=== PATIENT | female | born 1960 | race Caucasian/White ===

== ENCOUNTER 2020-06-28 18:08 | Emergency (ER) | payer BC ==
[2020-06-28] MEDS ORDERED: methylPREDNISolone Sodium Succinate 125 MG/2 ML SDV IM ONE (18:52)
--- NOTE | 2020-06-28 18:52 | EDM.PDOC ---
ED HPI GENERAL MEDICAL PROBLEM - General Chief Complaint: Bite:Animal, Insect Stated Complaint: MULTIPLE BEE STINGS Time Seen by Provider: 06/28/20 18:30 Source of Information: Reports: Patient History Limitations: Reports: No Limitations - History of Present Illness INITIAL COMMENTS - FREE TEXT/NARRATIVE: Rosalind is a 59-year-old female presenting to the ED with concerns of swelling on her upper chest, neck, and face after being stung yesterday by 6 bees. The patient denies any shortness of breath or difficulty swallowing but is concerned because the swelling continues to worsen. The patient was setting up a new hive when the stings occurred. She had one sting to the left occiput, 2 stings on the anterior neck, 1 to the upper lip, 1 to the left cheek, and 1 to the chin. Neck Pain Score (Numeric/FACES): 3 - Related Data Allergies Allergy/AdvReac Type Severity Reaction Status Date / Time codeine AdvReac Nausea Verified 06/28/20 18:28 Home Meds: Home Meds Ergocalciferol (Vitamin D2) [Vitamin D2] 1 tab PO WEEKLY 06/28/20 [History] Fluticasone Propionate [Flonase] 2 spray NASBOTH DAILY 06/28/20 [History] Levothyroxine [Synthroid] 100 mcg PO DAILY 06/28/20 [History] Losartan/Hydrochlorothiazide [Losartan-HCTZ 50-12.5 MG] 1 tab PO DAILY 06/28/20 [History] ED ROS GENERAL - Review of Systems Review Of Systems: See Below Constitutional: Reports: No Symptoms HEENT: Reports: Other (Swelling of the upper lip, left cheek, and left occiput) Respiratory: Reports: No Symptoms Cardiovascular: Reports: No Symptoms Endocrine: Reports: No Symptoms GI/Abdominal: Reports: No Symptoms : Reports: No Symptoms Musculoskeletal: Reports: No Symptoms Skin: Reports: No Symptoms Neurological: Reports: No Symptoms Psychiatric: Reports: No Symptoms Hematologic/Lymphatic: Reports: No Symptoms Immunologic: Reports: Other (Histamine reaction secondary to bee stings.) ED EXAM, ANIMAL BITE - Physical Exam Exam: See Below Exam Limited By: No Limitations General Appearance: Alert, No Apparent Distress Eye Exam: Bilateral Eye: EOMI, PERRL Throat/Mouth: Normal Inspection, Normal Oropharynx, Normal Voice, No Airway Co mpromise Head: Facial Swelling (Swelling of the upper lip, left cheek, chin, and left occiput. Slight erythema over these areas with induration.) Neck: Normal Inspection, Other (Swelling and induration over the anterior neck. Erythema in the area of swelling.) Respiratory/Chest: No Respiratory Distress, Lungs Clear, Normal Breath Sounds, No Accessory Muscle Use, Chest Non-Tender Cardiovascular: Normal Peripheral Pulses, Regular Rate, Rhythm Neurological: Alert, Oriented, CN II-XII Intact, Normal Cognition, No Motor/Sensory Deficits Skin Exam: Other (Erythema and induration on the anterior neck, chin, left cheek, left upper lip, and left occiput secondary to the bee stings.) Course - Vital Signs Last Recorded V/S: Last Vital Signs Temp 36.7 C 06/28/20 18:25 Pulse 119 H 06/28/20 18:25 Resp 18 06/28/20 18:25 BP 111/71 06/28/20 18:25 Pulse Ox 94 L 06/28/20 18:25 - Orders/Labs/Meds Orders: Active Orders 24 hr Category Date Time Status methylPREDNISolone Sod Succ [Solu-MEDROL] Med 06/28/20 18:52 Once 125 mg IM ONETIME ONE Medication Orders Methylprednisolone Sodium Succinate (Methylprednisolone Sodium Succinate 125 Mg/2 Ml Sdv) 125 mg IM ONETIME ONE Stop: 06/28/20 18:53 Meds: Medications Generic Name Dose Route Start Last Admin Trade Name Freq PRN Reason Stop Dose Admin Methylprednisolone Sodium Succinate 125 mg 06/28/20 18:52 Methylprednisolone Sodium Succinate 125 Mg/2 Ml Sdv IM 06/28/20 18:53 ONETIME ONE - Re-Assessments/Exams Free Text/Narrative Re-Assessment/Exam: 06/28/20 18:57 the patient sustained 6 stings while trying to establish a hives last night. She has a significant histamine reaction. She did take Benadryl several times but the swelling continues to worsen. She is not experiencing any respiratory difficulty or difficulty with swallowing. She has been stung by bees before and is likely not allergic to this venom. Plan is to give her Solu- Medrol 125 mg IM and put her on a 5-day course of prednisone 40 mg daily. She should be suitable for discharge. Departure - Departure Time of Disposition: 19:06 Disposition: Home, Self-Care 01 Clinical Impression: Bee sting reaction Qualifiers: Encounter type: initial encounter Injury intent: accidental or unintentional Qualified Code(s): T63.441A - Toxic effect of venom of bees, accidental (unintentional), initial encounter - Discharge Information Instructions: Bee, Wasp, or Hornet Sting, Adult Referrals: Kristy Guevara PA-C [Primary Care Provider] - Forms: ED Department Discharge Care Plan Goals: For future reference, I recommend using acetic acid (white vinegar) applied quickly to the bee sting to neutralize the toxin. I would simply put that on a washcloth or rag and apply it to the area for least 10 to 15 minutes. For today we have given you a shot of Solu-Medrol which is a potent steroid. I would like you to take oral steroids starting tomorrow 4 tablets a day for 5 days. This should help reduce the inflammatory response. You may continue to take Benadryl if you wish but it is likely not to help after 24 hours as the initial histamine reaction will of waned. Return to the ED should you develop any significant difficulty with swallowing or shortness of breath. Good luck with your bees this year, keep them safe and enjoy the honey in the fall. Sepsis Event Note (ED) - Evaluation Sepsis Screening Result: No Definite Risk - Focused Exam Vital Signs: Vital Signs Temp Pulse Resp BP Pulse Ox 06/28/20 18:25 36.7 C 119 H 18 111/71 94 L - Problem List & Annotations (1) Bee sting reaction SNOMED Code(s): 585846088, 899003373, [id number] Code(s): T63.441A - TOXIC EFFECT OF VENOM OF BEES, ACCIDENTAL, INIT Status: Acute Priority: Medium Current Visit: Yes Qualifiers: Encounter type: initial encounter Injury intent: accidental or unintentional Qualified Code(s): T63.441A - Toxic effect of venom of bees, accidental (unintentional), initial encounter - Problem List Review Problem List Initiated/Reviewed/Updated: Yes - My Orders Last 24 Hours: My Active Orders 06/28/20 18:52 methylPREDNISolone Sod Succ [Solu-MEDROL] 125 mg IM ONETIME ONE - Assessment/Plan Last 24 Hours: My Active Orders 06/28/20 18:52 methylPREDNISolone Sod Succ [Solu-MEDROL] 125 mg IM ONETIME ONE
== END 2020-06-28 19:25 | disposition home or self-care (01) ==
LOC: JP.ED 18:08
DX: T63.441A Toxic effect of venom of bees, accidental (unintentional), initial encounter (principal); Z88.5 Allergy status to narcotic agent
CPT/HCPCS: 96372; 99282; J2930; 99283

== ENCOUNTER 2021-04-09 07:10 | Day surgery (SDC) | payer BC ==
[~2021-04-09 07:10] MED LIST: Midazolam 1 MG/ML 2 ML SDV ONE; Propofol 200 MG/20 ML SDV ONE; fentaNYL 100 MCG/2 ML SDV ONE
[2021-04-09] MEDS ORDERED: Sodium Chloride 0.9% 1,000 ML IV SCH (07:45)
== END 2021-04-09 10:45 | disposition home or self-care (01) ==
LOC: JP.SDS 07:10
PROVIDERS: ATTEND Surgery
DX: Z12.11 Encounter for screening for malignant neoplasm of colon (principal); D12.3 Benign neoplasm of transverse colon; K57.30 Diverticulosis of large intestine without perforation or abscess without bleeding; I10 Essential (primary) hypertension; K21.9 Gastro-esophageal reflux disease without esophagitis; E66.9 Obesity, unspecified
CPT/HCPCS: 45385; 88305; J2250; J2704; J3010; J7030

== ENCOUNTER 2023-01-31 06:25 | Emergency (ER) | payer BC, OTHER ==
[2023-01-31] MEDS ORDERED: Ketorolac 30 MG/ML SDV IM ONE (07:16)
== END 2023-01-31 08:47 | disposition home or self-care (01) ==
LOC: JP.ED 06:25
DX: M79.672 Pain in left foot (principal); I10 Essential (primary) hypertension; E03.9 Hypothyroidism, unspecified; Z79.82 Long term (current) use of aspirin; Z79.899 Other long term (current) drug therapy; Z88.5 Allergy status to narcotic agent; Z90.710 Acquired absence of both cervix and uterus
CPT/HCPCS: 73630-26-LT; 73630-LT; 96372; 99283; J1885